=== PATIENT | male | born 1945 | race Caucasian/White ===

== ENCOUNTER 2023-05-17 11:18 | Outpatient (CLI) | payer MEDICARE, BC | END 2023-05-17 11:19 | disposition critical access hospital (66) | LOC: EMS 11:18 | DX: R55 Syncope and collapse (principal); R11.2 Nausea with vomiting, unspecified; R10.9 Unspecified abdominal pain | CPT/HCPCS: A0425; A0427 ==

== ENCOUNTER 2023-05-17 11:55 | Emergency (ER) | payer MEDICARE, BC ==
--- NOTE | 2023-05-17 12:17 | ED Physician Documentation ---
History of Present Illness - Stated complaint Stated Complaint: ABD PX - Chief complaint Chief Complaint: Neuro - History obtained from History obtained from: Patient, Family () - Additonal information Additional information: Patient is a 77-year-old male presenting for evaluation of a syncopal episode that occurred this morning while he was sitting at voodoo. Patient reports feeling lightheaded and then fainted. Per the patient's the LOC was less than 5 minutes but she cannot be more specific than this. There is no witnessed seizure activity. When coming to patient reported feeling nauseous and had a few episodes of dry heaving and emesis. He denies a headache, chest pain, difficulty breathing, abdominal Pain or diarrhea. Patient does report eating breakfast this morning but it was different than his usual. Patient states he did have an Irish muffin this morning with marmalade. He denies any increased activity recently. He does not take a blood thinner. Patient reports he feels better now. Review of Systems Constitutional: denies: Fever Cardiac: denies: Chest pain / pressure Respiratory: denies: Dyspnea GI: reports: Vomiting. denies: Abdominal Pain Neurologic: reports: Syncope PD PAST MEDICAL HISTORY - Past Medical History Cardiovascular: Hypertension, [place] - Past Surgical History Past Surgical History: Yes General: Cholecystectomy Ortho: Other - Present Medications Home Medications: Ambulatory Orders Medication Instructions Recorded Confirmed Aspirin 81 mg PO DAILY 09/07/16 05/17/22 Atorvastatin [Lipitor] 20 mg ORAL DAILY 09/07/16 05/17/22 Cholecalciferol (Vitamin D3) 1,000 unit PO DAILY 09/07/16 05/17/22 [Vitamin D3] Lisinopril/Hydrochlorothiazide 1 tab ORAL DAILY 09/07/16 05/17/22 [Lisinopril-Hctz 20-25 mg Tab] Metoprolol Succinate [Toprol Xl] 25 mg ORAL DAILY 09/07/16 05/17/22 Ubidecarenone [Co Q-10] 300 mg ORAL DAILY 09/07/16 05/17/22 Carbidopa/Levodopa [Carbidopa-Levo 1 each PO HS 05/17/22 05/17/22 ER 25-100 Tab] - Allergies Allergies/Adverse Reactions: Allergies Allergy/AdvReac Type Severity Reaction Status Date / Time No Known Drug Allergies Allergy Verified 05/17/23 12:31 - Social History Does the pt smoke?: No Smoking Status: Never smoker Does the pt drink ETOH?: Yes Does the pt have substance abuse?: No - Immunizations Immunizations are current?: Yes - POLST Patient has POLST: Yes PD ED PE NORMAL - General General: Alert and oriented X 3, No acute distress, Well developed/nourished - HEENT HEENT: Atraumatic, PERRL, EOMI, Moist mucous membranes, Pharynx benign - Neck Neck: Supple, no meningeal sign - Cardiac Cardiac: RRR, No murmur, Strong equal pulses - Respiratory Respiratory: No respiratory distress, Clear bilaterally - Abdomen Abdomen: Normal bowel sounds, Soft, Non tender, Non distended - Derm Derm: Warm and dry - Extremities Extremities: No calf tenderness / cord - Neuro Neuro: Alert and oriented X 3, deposition operator 2-12 intact, No motor deficit, No sensory deficit, Normal speech Results - Vitals Vitals: Vital Signs - 24 hr 05/17/23 05/17/23 05/17/23 12:04 12:25 14:20 Temperature 36.5 C Heart Rate 58 L 55 L Heart Rate [ 51 L Sitting] Heart Rate [ 52 L Standing] Heart Rate [ 52 L Supine] Respiratory 14 18 Rate Blood Pressure 118/80 140/73 H Blood Pressure 142/75 H [Sitting] Blood Pressure 128/73 [Standing] Blood Pressure 129/67 [Supine] O2 Saturation 97 96 05/17/23 14:36 Temperature Heart Rate 57 L Heart Rate [ Sitting] Heart Rate [ Standing] Heart Rate [ Supine] Respiratory 15 Rate Blood Pressure 161/78 H Blood Pressure [Sitting] Blood Pressure [Standing] Blood Pressure [Supine] O2 Saturation 100 Oxygen O2 Source Room air - EKG (time done) 1155 EKG releavant findings:: EKG personally interpreted by author of this note. Relevant findings are: Rate 55, normal sinus rhythm, no STEMI, no ST depressions Rate: Rate (enter#) (55) Rhythm: Sinus bradycardia Intervals: No: Prolonged QT Ischemia: No: ST elevation c/w ischemia - Labs Labs: Laboratory Tests 05/17/23 05/17/23 12:35 12:35 WBC 8.6 RBC 5.24 Hgb 14.9 Hct 44.2 MCV 84.4 MCH 28.4 MCHC 33.7 RDW 13.8 Plt Count 177 MPV 9.8 Neut # (Auto) 6.9 H Lymph # (Auto) 0.9 L [place] # (Auto) 0.7 Eos # (Auto) 0.1 Baso # (Auto) 0.0 Absolute Nucleated RBC 0.00 Nucleated RBC % 0.0 Sodium 139 Potassium 3.6 Chloride 103 Carbon Dioxide 30 Anion Gap 6.0 BUN 16 Creatinine 1.1 Estimated GFR (MDRD) 65 L Glucose 142 H Calcium 9.7 Total Bilirubin 1.1 H AST 17 ALT 4 L Alkaline Phosphatase 93 Troponin I High Sens 4.7 Total Protein 6.7 Albumin 4.2 Globulin 2.5 Albumin/Globulin Ratio 1.7 Lipase 21 PD Medical Decision Making - ED course Complexity details: reviewed results, re-evaluated patient, d/w patient, d/w family ED course: Patient is a 77-year-old male presenting for evaluation of a syncopal episode that occurred while at voodoo. When he woke up he started feeling sick to his stomach and had several episodes of emesis. No abdominal tenderness noted. Vital signs appear stable and he is negative for orthostatics. CBC, chemistry, troponin obtained and reviewed without significant findings. EKG also appears to be nonischemic. Chest x-ray is negative for infiltrate. Patient is feeling better here with IV fluids. He is ambulating and tolerating p.o. Repeat abdominal exam is benign. Unclear as to exactly what caused the syncopal episode but he does have a history of 2 other presentations to the ED for syncope. He denies palpitations, chest pain, feeling short of air. Patient counseled on need for close follow-up with primary care provider as well as concerning symptoms to return for. Departure - Departure Disposition: 01 Home, Self Care Clinical Impression: Syncope, Nausea & vomiting Condition: Stable Instructions: ED Fainting Unkn Cause, ED Nausea Vomiting Comments: You were evaluated after a fainting spell. Your labs and testing today are reassuring but I do recommend close follow-up with your primary care provider in the next week. In the meanwhile today I would recommend a bland diet and rest along with hydration. Return to the ER if you have any worsening symptoms such as abdominal pain. Forms: PCP List Discharge Date/Time: 05/17/23 14:56
[2023-05-17] MEDS ORDERED: SODIUM CHLORIDE 0.9% 1,000 ML IV STA (12:29)
[2023-05-17 12:40] LABS: BASOPHILS % (AUTO) 0.3 %; EOSINOPHILS # (AUTO) 0.1 10^3/uL (0.0-0.7); EOSINOPHILS % (AUTO) 0.6 %; HCT - HEMATOCRIT 44.2 % (42.0-52.0); HGB - HEMOGLOBIN 14.9 g/dL (14.0-18.0); LYMPHOCYTES # (AUTO) 0.9 10^3/uL (1.5-3.5); LYMPHOCYTES % (AUTO) 10.9 %; MEAN CORPUSCULAR HEMOGLOBIN 28.4 pg (27.0-31.0); MEAN CORPUSCULAR HGB CONC 33.7 g/dL (32.0-36.0); MEAN CORPUSCULAR VOLUME 84.4 fL (80.0-94.0); MEAN PLATELET VOLUME 9.8 fL (7.4-11.4); MONOCYTES # (AUTO) 0.7 10^3/uL (0.0-1.0); MONOCYTES % (AUTO) 7.8 %; NEUTROPHILS # (AUTO) 6.9 10^3/uL (1.5-6.6); NEUTROPHILS % (AUTO) 79.9 %; PLT - PLATELET COUNT 177 10^3/uL (130-450); RED BLOOD COUNT 5.24 10^6/uL (4.70-6.10); RED CELL DISTRIBUTION WIDTH 13.8 % (12.0-15.0); WHITE BLOOD COUNT 8.6 x10^3/uL (4.8-10.8)
[2023-05-17 13:02] LABS: TROPONIN I HIGH SENSITIVITY 4.7 ng/L (2.3-19.7)
[2023-05-17 13:05] LABS: ALBUMIN 4.2 g/dL (3.2-5.5); ALBUMIN/GLOBULIN RATIO 1.7 (1.0-2.2); BILIRUBIN,TOTAL 1.1 mg/dL (0.2-1.0); CALCIUM 9.7 mg/dL (8.5-10.3); CREATININE 1.1 mg/dL (0.6-1.3); POTASSIUM 3.6 mmol/L (3.5-4.5); TOTAL PROTEIN 6.7 g/dL (6.4-8.9)
--- NOTE | 2023-05-17 13:13 | XRAY Report ---
PROCEDURE: Chest 1 View X-Ray INDICATIONS: syncope TECHNIQUE: One view of the chest was acquired. COMPARISON: None. FINDINGS: Surgical changes and devices: None. Lungs and pleura: No pleural effusions or pneumothorax. Lungs are clear. Mediastinum: Mediastinal contours appear normal. Heart size is normal. Bones and chest wall: No suspicious bony lesions. Overlying soft tissues appear unremarkable. IMPRESSION: No acute cardiopulmonary process. Reviewed by: Collin Grimaldo MD on 05/17/2023 12:12 PM [facility] Approved by: Collin Grimaldo MD on 05/17/2023 12:12 PM [facility] Station ID: [id number]
[2023-05-17 14:37] VITALS: BP 161/78; O2SAT 100
== END 2023-05-17 14:56 | disposition home or self-care (01) ==
LOC: EDUNIT# → ED 11:55
DX: R55 Syncope and collapse (principal); R11.2 Nausea with vomiting, unspecified
CPT/HCPCS: 36415; 80053; 83690; 84484; 85025; 93005; 96360; 99284